=== PATIENT | male | born 1995 | race Caucasian/White ===

== ENCOUNTER 2017-03-15 20:37 | Emergency (ER) | payer MEDICAID ==
[2017-03-15] MEDS ORDERED: IBUPROFEN 600 MG TAB PO ONE (20:53)
--- NOTE | 2017-03-15 20:53 | EDPHY ---
H & P Time Seen by Provider: 03/15/17 20:44 HPI/ROS: HPI Left hand injury. 21-year-old male, right-hand dominant, was playing softball. He had a softball glove on his left hand. He dove for a ball. The glove and hand twisted awkwardly, bending his 4th and 5th digits in the ulnar direction. He complains of pain and swelling to the 4th and 5th MCP joints and metacarpal areas. Denies any other injury or complaint. ROS: Constitutional: No fever, no chills. No weakness. Respiratory: No cough. No shortness of breath. Cardiac: No chest pain, no palpitations. Gastrointestinal: No abdominal pain, no vomiting, no diarrhea. Musculoskeletal: No back pain. No neck pain. As above. Skin: No rashes. No lacerations or abrasions. Neurological: No headache. No focal weakness or altered sensation. Past medical history: Distal radius fracture left wrist. Social history: Here with his girlfriend. Nonsmoker. Denies alcohol. Physical Exam: General Appearance: Alert, no distress. This patient is responding to questions appropriately and in full sentences. This patient appears well- hydrated and well-nourished. Eyes: Pupils equal and round no pallor or injection. No lid edema, erythema or injection. Left hand exam: Significant for tenderness and swelling involving the predominantly dorsal and ulnar aspect of the 4th and 5th metacarpals and 4th and 5th MCP joints. There is tenderness on palpation over this area. No erythema or warmth. No ecchymosis. The flexor digitorum and superficialis tendon function of the 4th and 5th digits is intact. Extensor tendon function of the 4th and 5th digits is intact. The left hand is neurovascularly intact. Neurological: Motor sensory function is grossly intact. Cranial nerves are normal. Gait is normal. Skin: Warm and dry, no rashes. No lacerations or abrasions. Musculoskeletal: As above. Extremities are symmetrical. All joints range without pain or impingement except the 4th and 5th left MCP joints. Psychiatric: No agitation. No depression. Database: EKG: Imaging: Left hand x-ray series: Significant for a comminuted spiral fracture which is intra-articular, 5th metacarpal neck and head. There is also a nondisplaced fracture involving the ulnar aspect of the 4th metacarpal head. This is non intra-articular. Hardware from previous radius fracture intact. Interpreted by me. Procedure: Splint placement. A ortho glass ulnar gutter splint was applied to the left hand and wrist. After application of the splint I returned and re-examined the patient. The splint was adequately immobilizing the joint and distal to the splint the patient's circulation and sensation was intact. Emergency department course: Patient given 600 mg of ibuprofen and sent for left hand x-ray series. 9:00 p.m., discussed x-ray results with the patient and diagnosis of injuries. Patient splinted as above. Plan will be to have him follow up with orthopedic hand specialist for further evaluation and management. 9:15 p.m., spoke with Dr. Farhad Quintanilla, orthopedic hand specialist. The patient's case was discussed in detail with Dr. Quintanilla. Dr. Quintanilla will see this patient in his clinic in 2-3 days for re-evaluation and likely surgical management. Dr. Quintanilla agrees with emergency department management. 9:20 p.m., patient resting comfortably. Splinted as above. Left hand is neurovascularly intact. Follow-up with Dr. Quintanilla discussed with him. He understands his follow-up. Return to emergency department precautions reviewed. All of his questions were answered. He was discharged in good condition. Differential Diagnosis: The differential diagnosis on this patient includes but is not limited to boxer' s fracture/metacarpal fracture, metacarpal phalangeal joint dislocation, metacarpal phalangeal joint sprain. This represents a partial list of diagnoses considered. These considerations are based on history, physical exam , past history, reassessment and diagnostic testing. Smoking Status: Never smoked Constitutional: Initial Vital Signs Temperature (C) 36.8 C 03/15/17 20:59 Heart Rate 91 03/15/17 20:59 Respiratory Rate 14 03/15/17 20:59 Blood Pressure 134/81 H 03/15/17 20:59 O2 Sat (%) 96 03/15/17 20:59 O2 Delivery Mode Room Air Allergies/Adverse Reactions: No Known Allergies Allergy (Verified 03/15/17 20:57) Home Medications: Medication Instructions Recorded NK [No Known Home Meds] 01/25/14 Medical Decision Making - Diagnostics Imaging Results: Imaging Impressions Hand X-Ray 03/15/17 20:48 Impression: Comminuted, displaced and angulated fracture of the distal end of the fifth metacarpal with minimal fracture of the fourth metacarpal. - Data Points Medications Given: Discontinued Medications Ibuprofen (Motrin) 600 mg PO EDNOW ONE Stop: 03/15/17 20:54 Last Admin: 03/15/17 21:06 Dose: 600 mg Departure - Departure Disposition: Home, Routine, Self-Care Clinical Impression: Injury of left hand, Fracture of fifth metacarpal bone of left hand, Fracture of fourth metacarpal bone of left hand Condition: Good Instructions: Hand Fracture (ED) Additional Instructions: Read and follow provided instructions. Follow-up with y Dr. Farhad Quintanilla, orthopedic hand specialist, in 2-3 days for re-evaluation. He has your information. Call his office tomorrow morning for appointment time. Ibuprofen dosin mg every 6 hours with meals for the next 3 days only. Take only as needed for pain. [place]/Percocet dosin-2 every 4-6 [address] for [address] not drive on this medication. Return to the emergency department for worsening pain, swelling, discoloration, loss of sensation or other serious concerns. Referrals: Farhad Quintanilla MD [Medical Doctor] - As per Instructions
[2017-03-15 21:03] VITALS: BP 134/81; PULSE 91; RESP 14; TEMP 98.2; O2SAT 96
[2017-03-15] MEDS ORDERED: HYDROCOD/APAP 5/325 PREPACK#6 BTL TAKEHOME ONE (21:22)
--- NOTE | 2017-03-16 14:37 | GHP ---
[f rep st] PREOP HISTORY AND PHYSICAL DATE OF ADMISSION: 03/15/2017 CHIEF COMPLAINT: Fractured neck, 5th metacarpal. HISTORY OF PRESENTING COMPLAINT: The patient is a 21-year-old male who was playing softball when he dove to make a catch, and sustained an injury to his left nondominant hand. PAST MEDICAL HISTORY: Unremarkable. PAST SURGICAL HISTORY: Includes an appendectomy, and a wrist fracture that was complicated by luiza rtment syndrome on the left side. MEDICATIONS: None. ALLERGIES: None known. PHYSICAL EXAMINATION: GENERAL: He is a healthy-looking 21-year-old male. CARDIOVASCULAR: Heart so unds are normal. RESPIRATORY: Chest is clear with good air entry. EXTREMITIES: The left hand in an ulnar gutter slab, which is adequately splinting the fractures. X-ray reveals the comminuted, proximally displaced, intra-articular fracture of the 5th metacarpal n aissatou and head. IMPRESSION: Fit for procedure. PLAN: Open reduction and internal fixation of left 5th metacarpal. The nature of this fracture is such that I think internal fixation is indicated. I discussed this with the patient and his mother. We will make arrangements. /[id number]/MODL
== END 2017-03-15 21:45 | disposition home or self-care (01) ==
LOC: CED 20:37
DX: S62.307A Unspecified fracture of fifth metacarpal bone, left hand, initial encounter for closed fracture (principal); S62.305A Unspecified fracture of fourth metacarpal bone, left hand, initial encounter for closed fracture; X58.XXXA Exposure to other specified factors, initial encounter; Y99.8 Other external cause status; Y93.64 Activity, baseball
CPT/HCPCS: 73130-PO

== ENCOUNTER 2017-03-17 12:35 | Day surgery (SDC) | payer MEDICAID ==
[~2017-03-17 12:35] MED LIST: ceFAZolin 2 GM/DEXTROSE 100 ML IV ONE
[2017-03-17] MEDS ORDERED: LIDOCAINE 1% 2 ML INJ ID PRN (13:40)
[2017-03-17] MEDS ORDERED: LR 1,000 ML IV ONE (13:40)
[2017-03-17] MEDS ORDERED: CEFAZOLIN 2 GM/DEXTROSE/100 ML BAG IV ONE (13:52)
[2017-03-17 13:56] VITALS: RESP 16
--- NOTE | 2017-03-17 14:02 | PDHPUP ---
History & Physical Update H&P update statement: This history and physical update is based on an assessment of the patient which was completed after admission or registration (within 24 hours), but prior to the surgery/procedure. H&P update: H&P reviewed & patient examined, no change in patient's condition since H&P completed
[2017-03-17] MEDS ORDERED: MIDAZOLAM 2 MG/2 ML VIAL ONE (14:38)
[2017-03-17] MEDS ORDERED: fentaNYL 100 MCG/2 ML INJ ONE (14:43)
[2017-03-17] MEDS ORDERED: MIDAZOLAM 2 MG/2 ML VIAL IVP ONE (14:43)
[2017-03-17] MEDS ORDERED: PROPOFOL 200 MG/20 ML VIAL ONE (14:43)
--- NOTE | 2017-03-17 14:47 | PDANEPAE ---
ANE History of Present Illness 21yo for Left Hand Fracture ANE Past Medical History - Cardiovascular History Hx Hypertension: No Hx Arrhythmias: No Hx Chest Pain: No Hx Coronary Artery / Peripheral Vascular Disease: No Hx CHF / Valvular Disease: No Hx Palpitations: No - Pulmonary History Hx COPD: No Hx Asthma/Reactive Airway Disease: No Hx Recent Upper Respiratory Infection: No Hx Oxygen in Use at Home: No Hx Sleep Apnea: No Sleep Apnea Screening Result - Last Documented: Negative - Neurologic History Hx Cerebrovascular Accident: No Hx Seizures: No Hx Dementia: No - Endocrine History Hx Diabetes: No - Renal History Hx Renal Disorders: No - Liver History Hx Hepatic Disorders: No - Neurological & Psychiatric Hx Hx Neurological and Psychiatric Disorders: No - Cancer History Hx Cancer: No - Congenital Disorder History Hx Congenital Disorders: No - GI History Hx Gastrointestinal Disorders: No - Other Health History Other Health History: none - Chronic Pain History Chronic Pain: No - Surgical History Prior Surgeries: appy. broken left wrist surgery. compartment syndrome surgery on left wrist following ANE Review of Systems Review of systems is: negative - Exercise capacity METS (RN): 4 METS ANE Patient History - Allergies Allergies/Adverse Reactions: No Known Allergies Allergy (Verified 03/16/17 16:00) - NPO status NPO Since - Liquids (Date): 03/16/17 NPO Since - Liquids (Time): 11:00 NPO Since - Solids (Date): 03/16/17 NPO Since - Solids (Time): 23:30 - Smoking Hx Smoking Status: Never smoked - Family Anes Hx Family Hx Anesthesia Complications: none ANE Labs/Vital Signs - Vital Signs Blood Pressure: 128/72 Heart Rate: 54 Respiratory Rate: 16 O2 Sat (%): 97 Height: 187.96 cm Weight: 79.379 kg ANE Physical Exam - Airway Neck exam: FROM Mallampati Score: Class 2 Mouth exam: normal dental/mouth exam - Pulmonary Pulmonary: clear to auscultation - Cardiovascular Cardiovascular: regular rate and rhythym ANE Anesthesia Plan Anesthesia Plan: GA w LMA
[2017-03-17] MEDS ORDERED: ONDANSETRON 4 MG/2 ML VIAL ONE (14:55)
[2017-03-17] MEDS ORDERED: DEXAMETHASONE 4 MG/ML VIAL ONE (14:55)
[2017-03-17] MEDS ORDERED: BUPIVACAINE/EPI 0.5% 30 ML SDV ONE (14:56)
[2017-03-17] MEDS ORDERED: OXYCODONE/APAP 5/325 TAB PO PRN (14:58)
[2017-03-17] MEDS ORDERED: fentaNYL 100 MCG/2 ML INJ IVP PRN ×2 (14:58)
[2017-03-17] MEDS ORDERED: HYDROmorphONE/DILAUDID 1 MG/ML SYR IVP PRN ×2 (14:58)
[2017-03-17] MEDS ORDERED: ONDANSETRON 4 MG/2 ML VIAL IVP PRN (14:58)
[2017-03-17] MEDS ORDERED: NALOXONE HCL 0.4 MG/ML INJ IVP PRN (14:58)
--- NOTE | 2017-03-17 15:54 | POSTANESTH ---
Post Anesthetic Evaluation Cardiovascular Status: Normal, Stable Respiratory Status: Normal, Stable Level of Consciousness/Mental Status: Can Participate in Eval, Mildly Sleepy, Arousable Pain Control: Adequate, Prn Tx Ordered Nausea/Vomiting Control: Adequate, Prn Tx Ordered Complications Possibly Related to Anesthesia: None Noted
--- NOTE | 2017-03-17 15:55 | POSTOPPROG ---
Post Op Note Date of Operation: 03/17/17 Surgeon: Farhad Quintanilla Pre-op Diagnosis: left 5th metacarpal fracture Post-op Diagnosis: same Procedure: open reduction and internal fixation same Inf/Abcess present in the surg proc area at time of surgery?: No EBL: Minimal
[2017-03-17 16:41] VITALS: TEMP 97.7
[2017-03-17 17:24] VITALS: BP 114/66; PULSE 51; O2SAT 98
--- NOTE | 2017-03-18 09:43 | GOP ---
[f rep st] OPERATIVE REPORT DATE OF OPERATION: 03/17/2017 SURGEON: Farhad Quintanilla MD PREOPERATIVE DIAGNOSIS: Comminuted intraarticular fracture left 5th metacarpal. POSTOPERATIVE DIAGNOSIS: Noncomminuted intraarticular displaced fracture left 5th metacarpal. PROCEDURE PERFORMED: Open reduction and internal fixation left 5th metacarpal. FINDINGS: DESCRIPTION OF PROCEDURE: With the patient lying supine under general anesthesia the left hand and forearm were prepped and draped in usual fashion. Curving S-shaped incision was made over the dorsu m of the distal half of the 5th metacarpal. Skin flaps were raised and dissection was taken down to the extensor apparatus which was retracted in an ulnar direction, dividing the junctura tendineae. Periosteal elevator was used to expose the fracture. The questionable comminution was revealed to be an artifact. The fracture was opened up and slightly debrided and then reduced into an anatomic position with relative ease. Two 2 mm diameter lag screws one 12 mm long and the other 10 mm long w ere placed in slightly different directions across the fracture resulting in a stable anatomic align ment. Closure was carried out with 4-0 Vicryl at the periosteum and junctura tendineae, and 5-0 Pro edelmira in the skin. Dressing of Xeroform gauze was applied followed by an ulnar gutter fiberglass spl int. The procedure was tolerated well. Estimated blood loss 10 mL. Tourniquet time was 31 minutes . /[id number]/MODL
== END 2017-03-17 17:19 | disposition home or self-care (01) ==
LOC: FSGY 12:35
PROVIDERS: ATTEND Plastic Surgery
PROC: 0PSQ04Z Reposition Left Metacarpal with Internal Fixation Device, Open Approach (ICD-10-PCS; principal; 2017-03-17 14:00)
DX: S62.317A Displaced fracture of base of fifth metacarpal bone, left hand, initial encounter for closed fracture (principal); Y93.9 Activity, unspecified; Y92.9 Unspecified place or not applicable
CPT/HCPCS: C1713; J0690; J1100; J2250; J2405; J2704; J3010